=== PATIENT | female | born 2005 | race African-American/Black ===

== ENCOUNTER → 2024-01-30 09:06 | Outpatient (REF) | payer BC, SELFPAY | LOC: MRI 3T 09:06 | PROVIDERS: ATTENDING PHYSICIAN Nurse Practitioner Adult Health | DX: R94.7 Abnormal results of other endocrine function studies (principal) | CPT/HCPCS: 70553; A9575 ==

== ENCOUNTER 2024-05-31 17:26 | Emergency (ER) | payer BC, SELFPAY ==
[2024-05-31 17:42] VITALS: BP 132/66
[2024-05-31 18:14] VITALS: BMI 34.0
[2024-05-31 19:31] LABS: % Basophils 0.2 % (0-2); % Eosinophils 0.1 % (0-6); % Immature Granulocytes 0.3 % (0-0.5); % Lymphocytes 11.8 % (20.5-51.1); % Monocytes 6.4 % (1.7-9.3); % Neutrophils 81.2 % (42.2-75.2); Absolute Lymphocytes 1.5 10^3/uL (1.2-3.4); Absolute Monocytes 0.8 10^3/uL (0.1-0.6); Absolute Neutrophils 10.4 10^3/uL (1.4-6.5); Hematocrit 34.8 % (37.0-47.0); Hemoglobin 11.3 g/dL (12.0-16.0); Mean Corp Hgb Conc. 32.5 g/dL (33.0-37.0); Mean Corpuscular Hgb 26.5 pg (27.0-31.0); Mean Corpuscular Volume 81.7 fL (81.0-99.0); Mean Platelet Volume 10.2 fL (7.4-10.4); Nucleated Red Blood Cells % 0 %; Platelet Count 361 10^3/uL (130-400); Red Blood Cell Count 4.26 10^6/uL (4.20-5.40); Red Cell Dist. Width 14.7 % (11.5-14.5); White Blood Cell Count 12.8 10^3/uL (4.8-10.8)
[2024-05-31 19:34] VITALS: BP 114/74
[2024-05-31 19:50] LABS: D-Dimer < 0.27 ug/mlFEU (0.00-0.50)
[2024-05-31 19:58] LABS: ALT (SGPT) 15 U/L (0-35); AST (SGOT) 19 U/L (14-36); Albumin 4.7 g/dl (3.5-5.0); Alkaline Phosphatase 53 U/L (38-126); Blood Urea Nitrogen 13 mg/dl (7-17); Calcium 9.9 mg/dl (8.4-10.2); Carbon Dioxide 24 mmol/L (22-30); Chloride 102 mmol/L (98-107); Estimated Creatinine Clearance > 125 ml/min; Glucose 105 mg/dl (70-99); Potassium 4.3 mmol/L (3.5-5.1); Sodium 137 mmol/L (135-145); Total Bilirubin 0.5 mg/dl (0.2-1.3); Total Protein 7.4 g/dl (6.3-8.2); eGFR > 60.00
--- NOTE | 2024-05-31 20:11 | ED.GENMED ---
History of Present Illness
General
Chief Complaint: Breathing Problem
Source: patient
Exam Limitations: none
Time Seen by Provider: 05/31/24 18:02
Nursing documentation reviewed up to this point in time: agreed with
Course
Orders/Labs/Results
Orders:
Orders
05/31/24 19:24
Complete Blood Count/With Diff Urgent
Comprehensive Metabolic Panel Urgent
D-Dimer Urgent
05/31/24 19:51
CR Chest - 2 Views Urgent
Comment:
Reason For Exam: SOB
Abnormal Lab Results
05/31/24
19:24
WBC 12.8 H 10^3/uL
(4.8-10.8)
Hgb 11.3 L g/dL
(12.0-16.0)
Hct 34.8 L %
(37.0-47.0)
MCH 26.5 L pg
(27.0-31.0)
MCHC 32.5 L g/dL
(33.0-37.0)
RDW 14.7 H %
(11.5-14.5)
Absolute Neuts (auto) 10.4 H 10^3/uL
(1.4-6.5)
Absolute Monos (auto) 0.8 H 10^3/uL
(0.1-0.6)
Neutrophils % 81.2 H %
(42.2-75.2)
Lymphocytes % 11.8 L %
(20.5-51.1)
Glucose 105 H mg/dl
(70-99)
05/31/24 19:24
05/31/24 19:24
Vital Signs
Initial and Last Documented VS:
Initial Vital Signs
Temp Pulse Resp BP Pulse Ox
98.6 F 88 18 132/66 99
05/31/24 17:42 05/31/24 17:42 05/31/24 17:42 05/31/24 17:42 05/31/24 17:42
Last Documented Vital Signs
Temp Pulse Resp BP Pulse Ox
98.6 F 81 18 114/74 98
05/31/24 17:42 05/31/24 19:34 05/31/24 19:34 05/31/24 19:34 05/31/24 19:34
ED Attending Note
-
Portions of this chart may have been created with voice recognition software.� Occasional wrong word or��sound alike� substitutions may have occurred due to the inherent limitations of voice recognition software.
Discharge Plan
Departure
Patient Disposition: Home (Routine Discharge)
Date of Disposition: 05/31/24
Time of Disposition: 20:09
Patient with high blood pressure during this ER visit?: No
Condition: Good
Covid-19: Not Applicable
Discharge Problem:
DANIEL (dyspnea on exertion)
Instructions: Shortness of Breath (Dyspnea) (DC)
Referrals:
Tayla Awan [employer] [Family Provider] - Follow up in 2-3 days
Activity Restrictions/Additional Instructions:
Return to the emergency department immediately for any changes in/worsening of your symptoms.
Interventions
Interventions:
*Risk Screen - Suicide Last Done: 05/31/24 17:42
*General Assessment Last Done: 05/31/24 17:42
*Neglect/Abuse Screening Last Done: 05/31/24 18:14
ED- Fall Risk Assessment Last Done: 05/31/24 18:15
*ED COVID-19 Vaccine History Last Done: 05/31/24 17:42
ED- Cardiac Assessment Last Done: 05/31/24 18:15
ED- Pulmonary Assessment Last Done: 05/31/24 18:15
Discharge Date and Time
Print Language: MALTESE
== END 2024-05-31 20:17 | disposition home or self-care (01) ==
LOC: EMR 17:26
PROVIDERS: Nurse Practitioner; EMERGENCY PHYSICIAN Emergency Medicine; FAMILY PHYSICIAN Nurse Practitioner Adult Health
DX: R06.09 Other forms of dyspnea (principal); M79.89 Other specified soft tissue disorders; Z86.16 Personal history of COVID-19
CPT/HCPCS: 99283; 71046; 80053; 85025; 85379